=== PATIENT | female | born 1955 | race Caucasian/White ===

== ENCOUNTER 2017-04-23 17:55 | Emergency (ER) | payer BC, OTHER ==
--- NOTE | 2017-04-23 19:17 | EDM.PDOC ---
ED HPI GENERAL MEDICAL PROBLEM - General Chief Complaint: Lower Extremity Injury/Pain Stated Complaint: RT LEG PAIN MAYBR BLOOD CLOTH Time Seen by Provider: 04/23/17 19:01 Source of Information: Reports: Patient History Limitations: Reports: No Limitations - History of Present Illness INITIAL COMMENTS - FREE TEXT/NARRATIVE: HISTORY AND PHYSICAL: []62-year-old female presents with pain behind her knee on the right leg History of Present Illness: []Patient is in a Cam Walker boot in her right foot and ankle as she had a fracture 6 weeks ago She spoke with her orthopedic physician and was recommended to come in and have her leg checked for DVT/complains of a "ball" behind her knee Review of Systems: As per history of present illness and below otherwise all systems reviewed and negative. Past medical history: As per history of present illness and as reviewed below otherwise noncontributory. Surgical history: As per history of present illness and as reviewed below otherwise noncontributory. Social history: No reported history of drug or alcohol abuse. Family history: As per history of present illness and as reviewed below otherwise noncontributory. Physical exam: HEENT: Atraumatic, normocehpalic, pupils reactive, negative for conjunctival pallor or scleral icterus, mucous membranes moist, throat clear, neck supple, nontender, trachea midline. Lungs: Clear to auscultation, breath sounds equal bilaterally, chest non tender. Heart: S1S2, regular, negative for clicks, rubs, or JVD. Abdomen: Soft, nondistended, nontender. Negative for masses or hepatossplenmegaly. Negative for costovertebral tenderness. Pelvis: Stable nontender. Genitourinary: Deferred. Rectal: Deferred Extremities: Atraumatic, negative for cords or calf pain. Neurovascular unremarkable. Neuro: Awake, alert, oriented. Cranial nerves II through XII unremarkable. Cerebellum unremarkable. Motor and sensory unremarkable throughout. Exam nonfocal. Discussed with patient and her that the Doppler of her right lower extremity did not identify DVT Diagnostics: []doppler right lower extremity Therapeutics: [] Impression: [Right knee pain] Rule out Rangel's cyst Plan: []Follow-up with your primary care provider Definitive disposition and diagnosis as appropriate pending reevaluation and review of above. Onset: Gradual Duration: Day(s): Location: Reports: Lower Extremity, Right Quality: Reports: Pressure Severity: Mild Improves with: Reports: None Worsens with: Reports: None back of right knee Pain Score (Numeric/FACES): 5 - Related Data Allergies Allergy/AdvReac Type Severity Reaction Status Date / Time cephalexin monohydrate Allergy Rash Verified 04/23/17 18:38 [From Keflex] Iodinated Contrast- Oral and Allergy Anaphylactic Verified 04/23/17 18:38 IV Dye Shock [Iodinated Contrast Media - IV Dye] Penicillins Allergy Rash Verified 04/23/17 18:38 sumatriptan [From Imitrex] Allergy Anaphylactic Verified 04/23/17 18:38 Shock sumatriptan succinate Allergy Anaphylactic Verified 04/23/17 18:38 [From Imitrex] Shock Home Meds: Home Meds Albuterol [IJD: Albuterol HFA] 1 puff .XX Q4HR PRN 04/23/17 [History] Aspirin 81 mg PO ONETIME 04/23/17 [History] DULoxetine [Cymbalta] 60 mg PO DAILY 04/23/17 [History] EPINEPHrine [Epinephrine] 0.15 mg IJ ONETIME PRN 04/23/17 [History] Fluticasone/Salmeterol [Advair 250-50 Diskus] 1 puff IH DAILY 04/23/17 [History] LORazepam [Ativan] 0.5 mg PO BID 04/23/17 [History] Lidocaine 5% [Lidoderm 5%] 700 mg TOP DAILY 04/23/17 [History] Metoprolol Succinate [Toprol Xl] 100 mg PO DAILY 04/23/17 [History] Nitroglycerin [Nitrostat] 0.4 mg SL Q5M 04/23/17 [History] Pantoprazole Sodium [Protonix] 40 mg PO DAILY 04/23/17 [History] Pregabalin [Lyrica] 75 mg PO BID 04/23/17 [History] Zolpidem [Ambien] 10 mg PO BEDTIME 04/23/17 [History] amLODIPine [Norvasc] 2.5 mg PO DAILY 04/23/17 [History] Past Medical History Cardiovascular History: Reports: [facility] Other Oncologic History: uterine ca - Past Surgical History HEENT Surgical History: Reports: Adenoidectomy, Tonsillectomy GI Surgical History: Reports: Appendectomy, Cholecystectomy Female Surgical History: Reports: Hysterectomy Other Musculoskeletal Surgeries/Procedures:: Bilateral knee surgeries; Back Surgery Social & Family History - Family History Family Medical History: Noncontributory - Tobacco Use Smoking Status *Q: Former Smoker Years of Tobacco use: 20 Packs/Tins Daily: 2 Used Tobacco, but Quit: No Month Tobacco Last Used: 1994 Second Hand Smoke Exposure: No - Alcohol Use Days Per Week of Alcohol Use: 1 Number of Drinks Per Day: 1 Total Drinks Per Week: 1 - Recreational Drug Use Recreational Drug Use: No Drug Use in Last 12 Months: No Review of Systems - Review of Systems Review Of Systems: ROS reveals no pertinent complaints other than HPI. ED EXAM, GENERAL - Physical Exam Exam: See Below (see dictation) Course - Vital Signs Last Recorded V/S: Last Vital Signs Temp 36.3 C 04/23/17 18:45 Pulse 70 04/23/17 18:45 Resp 18 04/23/17 18:45 BP 117/73 04/23/17 18:45 Pulse Ox 94 L 04/23/17 18:45 - Orders/Labs/Meds Orders: Active Orders 24 hr Category Date Time Status Venous Doppler Lwr Ext Rt [US] Stat Exams 04/23/17 19:13 Taken Departure - Departure Time of Disposition: 21:02 Disposition: Home, Self-Care 01 Condition: Good Clinical Impression: Knee pain, acute Qualifiers: Laterality: right Qualified Code(s): M25.561 - Pain in right knee - Discharge Information Referrals: Kasi Gibbs DPM [Primary Care Provider] - Forms: ED Department Discharge Additional Instructions: The following information is given to patients seen in the emergency department who are being discharged to home. This information is to outline your options for follow-up care. We provide all patients seen in our emergency department with a follow-up referral. The need for follow-up, as well as the timing and circumstances, are variable depending upon the specifics of your emergency department visit. If you don't have a primary care physician on staff, we will provide you with a referral. We always advise you to contact your personal physician following an emergency department visit to inform them of the circumstance of the visit and for follow-up with them and/or the need for any referrals to a consulting specialist. The emergency department will also refer you to a specialist when appropriate. This referral assures that you have the opportunity for followup care with a specialist. All of these measure are taken in an effort to provide you with optimal care, which includes your followup. Under all circumstances we always encourage you to contact your private physician who remains a resource for coordinating your care. When calling for followup care, please make the office aware that this follow-up is from your recent emergency room visit. If for any reason you are refused follow-up, please contact the [facility] emergency department at and asked to speak to the emergency department charge nurse. Your knee pain does not indicate a deep vein thrombosis Ultrasound is negative for any blockage of blood flow to your leg You may have a Bakers cyst You will need to follow-up with your primary care provider - My Orders Last 24 Hours: My Active Orders 04/23/17 19:13 Venous Doppler Lwr Ext Rt [US] Stat - Assessment/Plan Last 24 Hours: My Active Orders 04/23/17 19:13 Venous Doppler Lwr Ext Rt [US] Stat
--- NOTE | 2017-04-26 11:46 | US ---
EXAM DATE: 04/23/17 PATIENT'S AGE: 62 Patient: NONA MUÑOZ Facility: [place], [place] Site . Site : [id number] Study: US Extremity Venous Right Leg-04/23/2017 8:31:35 PM Ordering Physician: Doctor Valverde Final Report: INDICATION: Recent be broken right ankle now with pain behind knee. History of previous DVT. A baby aspirin daily. TECHNIQUE: Ultrasound venous duplex lower right extremity. Compression venous exam was performed using clemons-scale, color Doppler, and spectral Doppler imaging. COMPARISON: None FINDINGS: Sonographic imaging demonstrates the right common femoral, deep femoral, superficial femoral, popliteal, posterior tibial and greater saphenous veins to be fully compressible with normal color Doppler blood flow. IMPRESSION: No deep venous thrombosis identified within the right lower extremity. Dictated by Clementina Lundy MD @ 04/23/2017 8:40:40 PM Dictated by: Clementina Lundy MD @ 04/23/2017 20:40:55 (Electronic Signature) Report Signed by Proxy. ISAAC
== END 2017-04-23 21:15 | disposition home or self-care (01) ==
LOC: MW.ED 17:55
DX: M25.561 Pain in right knee (principal); Z87.891 Personal history of nicotine dependence; Z79.82 Long term (current) use of aspirin; Z79.899 Other long term (current) drug therapy; Z88.0 Allergy status to penicillin; Z88.1 Allergy status to other antibiotic agents; Z91.041 Radiographic dye allergy status; Z88.8 Allergy status to other drugs, medicaments and biological substances
CPT/HCPCS: 93971-26-RT; 93971-RT; 99283; 99283-25